=== PATIENT | female | born 1955 | race Caucasian/White ===

== ENCOUNTER 2017-05-09 14:25 | Emergency (ER) | payer SELFPAY ==
[~2017-05-09] VITALS: Ht 157.5 cm; Wt 55.8 kg
[2017-05-09 14:42] VITALS: Ht 157.5 cm; Wt 55.8 kg
[2017-05-09] MEDS ORDERED: DIPHTH/TET/ACEL PERTUSS (ADULT) 0.5 ML VIAL IM ONE (17:30)
[2017-05-09] MEDS ORDERED: LIDOCAINE 1% (MDV) 20 ML INJ SC ONE (18:00)
--- NOTE | 2017-05-09 18:37 | ERD ---
ER Documentation Chief Complaint Chief Complaint RIGHT PINKY FINGER LAC, NOT ACTIVELY BLEEDING, COVERED WITH GAUZE HPI 62-year-old female presents with a chief complaint of laceration. Laceration sustained 3 hours ago on a knife. Laceration is on the fifth digit. Vaccination status unknown. No recent travel or recent antibiotic use. Denies numbness, tingling, loss of range of motion. Pain is 7 out of 10. Refuses pain medications at this time. Patient has no other complaints and describes no other associated manifestations. Nursing notes have been reviewed and are consistent with history given. ROS All systems reviewed and are negative except as per history of present illness. PMhx/Soc History of Surgery: No Anesthesia Reaction: No Hx Neurological Disorder: No Hx Respiratory Disorders: No Hx Cardiac Disorders: No Hx Psychiatric Problems: No Hx Miscellaneous Medical Probl: No Hx Alcohol Use: No Hx Substance Use: No Hx Tobacco Use: No Smoking Status: Never smoker Physical Exam Vitals Vital Signs Date Time Temp Pulse Resp B/P Pulse Ox O2 Delivery O2 Flow Rate FiO2 05/09/17 14:42 98.0 78 18 150/86 99 Physical Exam Const: [] Head: Atraumatic Eyes: Normal Conjunctiva ENT: Normal External Ears, Nose and Mouth. Neck: Full range of motion..~ No meningismus. Resp: Clear to auscultation bilaterally Cardio: Regular rate and rhythm, no murmurs Skin: No petechiae or rashes Back: No midline or flank tenderness Ext: No cyanosis, or edema. L shaped 3 cm laceration on the lateral right fifth digit. Neurovascularly intact. Cap refill less than 2 seconds. Tendons intact. Full range of motion after anesthesia. Neur: Awake and alert Psych: Normal Mood and Affect Results 24 hrs Current Medications Medications (Trade) Dose Ordered Sig/Suha Route PRN Reason Start Time Stop Time Status Last Admin Dose Admin Diphtheria/ Tetanus/Acell Pertussis (Adacel) 0.5 ml ONCE ONCE IM 05/09/17 17:30 05/09/17 17:31 DC 05/09/17 17:25 Lidocaine (Xylocaine 1% (Mdv) 20 ml) 20 ml ONCE ONCE SC 05/09/17 18:00 05/09/17 18:01 DC Procedures/MDM Patient presents with a laceration sustained with kitchen knife 3 hours ago. Neurovascularly intact and tendons intact. 3 mL of lidocaine without epi was used to anesthetize the area with adequate anesthesia. I have no suspicion for neurovascular compromise, bony pathology. Most likely diagnosis is uncompensated laceration. No indication for antibiotics at this time. Tdap was given in the emergency department. Neurovascularly intact after the procedure. 2 4-0 nylon sutures were used without complication. An additional 3 3-0 Prolene sutures were used. Adequate approximation. I have instructed to follow-up in 2 days for wound check with approximated time of removal in 10-14 days. I have spoke with the patient regarding their condition and future management. They have verbally responded that they understand their status and treatment plan. The patients vitals are stable, and their current condition is appropriate for discharge. The patient will be given discharge instructions with return precautions. Departure Diagnosis: Primary Impression: Laceration Condition: Stable Patient Instructions: Laceration, Hand Additional Instructions: Fuiste visto en el Departamento de emergencias por tu laceracin que hamlin sido cerrada. Barbosa herida hamlin sido limpiada y cubierta con ungento antibitico. Por favor, mantenga prakash vendaje merrill 12 horas. Despus de 12 horas, tome el ap sito y limpie suavemente la herida con slo jabn y agua. Si se le administraron antibiticos, complete el curso del tratamiento diogenes se prescribe. Busque signos de infeccin, diogenes aumento de enrojecimiento, hinchazn , dolor o secrecin de pus (lquido amarillo/dexter). Si usted ve signos de infeccin, por favor regrese al Departamento de emergencias inmediatamente. Si no hay signos de infeccin, cubra barbosa herida con ungento antibitico y reaplique un apsito. Vas a formar ernesto cicatriz. Para evitar cicatrices demasiado oscuras, mantenga la herida cubierta y fuera ashia merrill los pr ximos 6-12 meses. Considere usar cremas anti-Scar de OTC tales diogenes mederma. Vuelva al Ed para un cheque de la herida en 2 gr y otra vez para el retiro de la sutura en 10-14 gr. GONZALEZ RDZ PA-C May 09, 2017 18:37
== END 2017-05-09 18:59 | disposition home or self-care (01) ==
LOC: FTE 14:25
DX: S61.217A Laceration without foreign body of left little finger without damage to nail, initial encounter (principal); W26.0XXA Contact with knife, initial encounter; Y92.9 Unspecified place or not applicable; Z23 Encounter for immunization
CPT/HCPCS: 90471; 90715

== ENCOUNTER 2017-05-12 11:20 | Emergency (ER) | payer SELFPAY ==
[~2017-05-12] VITALS: Ht 154.9 cm; Wt 55.6 kg
[2017-05-12 11:22] VITALS: Ht 154.9 cm; Wt 55.6 kg
--- NOTE | 2017-05-12 14:12 | RADRPT ---
PROCEDURE: XR finger CLINICAL INDICATION: Right finger pain TECHNIQUE: 3 views of the right fifth digit were obtained. COMPARISON: No prior studies are available for comparison. FINDINGS: There is an acute transverse mildly displaced and angulated fracture through the mid portion of the fifth middle phalanx with a 2 mm of palmar cortical offset and apex palmar angulation. There is no i ntra-articular involvement. There is soft tissue swelling of the fifth digit. IMPRESSION: 1. Acute displaced and angulated extraarticular fifth middle phalanx fracture as above. RPTAT: UU .Mario Zayas MD, Date Time Electronically viewed and signed by .Mario Zayas MD, on 05/12/2017 14:11 .K/
[2017-05-12] MEDS ORDERED: CEPH-443 PO (14:43)
[2017-05-12] MEDS ORDERED: SULF1TAB31 PO (14:43)
[2017-05-12] MEDS ORDERED: IBUP-1542 PO (14:43)
[2017-05-12] MEDS ORDERED: TRIMETHOPRIM/SULFAMETHOX (DS) TAB PO ONE (15:00)
[2017-05-12] MEDS ORDERED: CEPHALEXIN 500 MG CAP PO ONE (15:00)
[2017-05-12 15:46] VITALS: BP 128/63; PULSE 70; RESP 16; TEMP 98.5
--- NOTE | 2017-05-12 16:14 | ERD ---
ER Documentation Chief Complaint Chief Complaint RT 5TH FINGER WOUND CHECK, NO COMPLAINT HPI 62-year-old female comes in for wound check from a laceration that occurred about 3 days ago from a crush injury at work, she works at a decreased. The patient is right-hand dominant, she sustained a laceration at the lateral dorsal aspect of the right fifth digit, sutures are placed. She has no complaints except she does report some pain and swelling to the area. Her tetanus is up-to-date, sutures are placed and she comes in for wound check. This time she denies any drainage, fevers or chills. She has no difficulty with movement, denies numbness. ROS All systems reviewed and are negative except as per history of present illness. Medications Home Meds Active Scripts Ibuprofen* (Motrin*) 600 Mg Tab, 600 MG PO Q6, #30 TAB Prov:RAJWINDER GOODE PA-C 05/12/17 Sulfamethoxazole/Trimethoprim* (Bactrim Ds* Tablet) 1 Each Tablet, 1 TAB PO BID , #20 TAB Prov:RAJWINDER GOODE PA-C 05/12/17 Cephalexin* (Keflex*) 500 Mg Capsule, 500 MG PO QID for 10 Days, CAP Prov:RAJWINDER GOODE PA-C 05/12/17 Allergies Allergies: Coded Allergies: No Known Allergy (Unverified , 05/12/17) PMhx/Soc Medical and Surgical Hx: pt denies Medical Hx, pt denies Surgical Hx History of Surgery: No Anesthesia Reaction: No Hx Neurological Disorder: No Hx Respiratory Disorders: No Hx Cardiac Disorders: No Hx Psychiatric Problems: No Hx Miscellaneous Medical Probl: No Hx Alcohol Use: No Hx Substance Use: No Hx Tobacco Use: No Smoking Status: Never smoker Physical Exam Vitals Vital Signs Date Time Temp Pulse Resp B/P Pulse Ox O2 Delivery O2 Flow Rate FiO2 05/12/17 15:46 98.5 70 16 128/63 96 Room Air 05/12/17 11:22 98.5 90 16 127/63 96 Physical Exam General: Well-developed, well-nourished. The patient appears in no acute distress. HEENT: Head is normocephalic, atraumatic. No scleral icterus. Neck: Supple. Nontender. Lungs: Clear to auscultation. Normal air movement. Heart: Regular rate and rhythm. S1 and S2 are normal. No murmurs, gallops, or rubs. Abdomen: Nondistended. Extremities: Lateral aspect of the middle phalanx of the right fifth digit show 5 simple interrupted sutures intact, no dehiscence, erythema or drainage, there is ecchymosis and soft tissue swelling. She is able to flex and extend at the DIP, PIP and MCP joint, capillary refill less than 2 seconds and sensation is distally intact. Neurologic: Alert and oriented 3. No focal deficits. Normal speech and gait. Skin: Normal turgor. No rash or lesions. Results 24 hrs Current Medications Medications (Trade) Dose Ordered Sig/Suha Route PRN Reason Start Time Stop Time Status Last Admin Dose Admin Cephalexin (Keflex) 500 mg ONCE ONCE PO 05/12/17 15:00 05/12/17 15:01 DC 05/12/17 15:12 Trimethoprim/ Sulfamethoxazole (Bactrim (Ds)) 1 tab ONCE ONCE PO 05/12/17 15:00 05/12/17 15:01 DC 05/12/17 15:12 DIAGNOSTIC IMAGING REPORT Patient: HELGA PRESCOTT : 1955 Age: 62 Sex: F MR #: [id number] DOS: 05/12/17 1339 Ordering MD: RAJWINDER GOODE PA-C Location: [facility] Room/Bed: PROCEDURE: XR finger CLINICAL INDICATION: Right finger pain TECHNIQUE: 3 views of the right fifth digit were obtained. COMPARISON: No prior studies are available for comparison. FINDINGS: There is an acute transverse mildly displaced and angulated fracture through the mid portion of the fifth middle phalanx with a 2 mm of palmar cortical offset and apex palmar angulation. There is no intra-articular involvement. There is soft tissue swelling of the fifth digit. IMPRESSION: 1. Acute displaced and angulated extraarticular fifth middle phalanx fracture as above. RPTAT: UU .Mario Zayas MD, MD Date Time Electronically viewed and signed by .Mario Zayas MD, on 05/12/2017 14: 11 .K/ Procedures/MDM ED course: Patient's EMR was reviewed, the patient's tetanus was updated at the previous visit. The right fifth digit was covered with a clean dressing, immobilized, with a metal finger splint. Splint Assessment: Neurovascularly intact post splint placement with good fit. Medical decision makin-year-old female comes in with a wound check from a laceration that she sustained 3 years ago from a crush injury. Patient does not show any signs of infection, and x-rays obtained today show a acute fracture of the middle phalanx. Given the laceration patient was diagnosed with an open fracture of the middle phalanx of the right fifth digit. Patient will be covered with Keflex and Bactrim, and she is placed in a sling. I advised patient she is to follow-up with a hand specialist, the patient will be information to the hand clinic as well as [facility]. There are no signs of tenosynovitis, tendon injury, fracture with infection, abscess. Departure Diagnosis: Primary Impression: Fracture of finger, left, open Additional Impression: Encounter for wound re-check Condition: Good Patient Instructions: Wound Check, Lac F/U (No Infection), Fracture, Finger, Open (Child) Referrals: TEX CORNELL MD [facility] Additional Instructions: HAND Specialist:Usted tiene ernesto condicin mdica que requiere que jorden a un especialista dentro de los prximos 1-2 gr.POR FAVOR,CON VÁSQUEZ SEGUIMIENTO DE PRIMARIA PHSICIAN refferal. SI USTED NO TIENE UN MDICO GENERAL Y / O USTED NO PUEDE PAGAR izabel a un mdico,los siguientes reynaga RECURSOS sido suministrado a usted. ES VÁSQUEZ RESPONSABILIDAD PARA SER VISTOS POR EL ESPECIALISTA: RAJWINDER GOODE PA-C May 12, 2017 16:14
== END 2017-05-12 15:50 | disposition home or self-care (01) ==
LOC: FTE 11:20
DX: S62.626A Displaced fracture of middle phalanx of right little finger, initial encounter for closed fracture (principal); X58.XXXA Exposure to other specified factors, initial encounter; Y92.9 Unspecified place or not applicable
CPT/HCPCS: 73140

== ENCOUNTER 2017-05-24 12:39 | Emergency (ER) | payer BC ==
[~2017-05-24] VITALS: Wt 55.0 kg
[~2017-05-24 12:39] MED LIST: CEPH-443 PO; IBUP-1542 PO; SULF1TAB31 PO
--- NOTE | 2017-05-24 14:00 | RADRPT ---
PROCEDURE: XR Finger. CLINICAL INDICATION: Trauma. Right fifth finger pain. TECHNIQUE: Three views. Frontal, lateral, and oblique. COMPARISON: None available FINDINGS: There is an acute transverse fracture through the proximal to mid shaft of the fifth middle phalanx with angulation apex anterior measuring 20 degrees. There is no other fracture and there is no dislo cation. The soft tissues are normal. Articular surfaces are intact. There is no lytic or blastic lesion. There is no radiopaque foreign body. IMPRESSION: 1. Acute transverse fracture through the proximal to mid shaft of the fifth middle phalanx with ang ulation apex-anterior measuring 20 degrees. 2. Otherwise unremarkable images of the right fifth finger. RPTAT: QQ .Jeremy Good MD, MD Date Time Electronically viewed and signed by .Jeremy Good MD, on 05/24/2017 14:00 .R/
--- NOTE | 2017-05-24 15:27 | ERD ---
ER Documentation Chief Complaint Chief Complaint HERE FOR SUTURE REMOVAL FOR RIGHT PINKY FINGER. NO BLEEDING NOTED HPI 62-year-old female presenting for suture removal of the right pinky finger. Patient was seen here 15 days ago and had sutures placed. Patient has been attempting to follow-up with hand surgeon but has been unsuccessful. Patient is right-hand dominant. She works in a bakery. Denies fever ROS All systems reviewed and are negative except as per history of present illness. Medications Home Meds Active Scripts Ibuprofen* (Motrin*) 600 Mg Tab, 600 MG PO Q6, #30 TAB Prov:RAJWINDER GOODE PA-C 05/12/17 Sulfamethoxazole/Trimethoprim* (Bactrim Ds* Tablet) 1 Each Tablet, 1 TAB PO BID , #20 TAB Prov:RAJWINDER GOODE PA-C 05/12/17 Cephalexin* (Keflex*) 500 Mg Capsule, 500 MG PO QID for 10 Days, CAP Prov:RAJWINDER GOODE PA-C 05/12/17 Allergies Allergies: Coded Allergies: No Known Allergy (Unverified , 05/12/17) PMhx/Soc History of Surgery: No Anesthesia Reaction: No Hx Neurological Disorder: No Hx Respiratory Disorders: No Hx Cardiac Disorders: No Hx Psychiatric Problems: No Hx Miscellaneous Medical Probl: No Hx Alcohol Use: No Hx Substance Use: No Hx Tobacco Use: No Smoking Status: Never smoker Physical Exam Vitals Vital Signs Date Time Temp Pulse Resp B/P Pulse Ox O2 Delivery O2 Flow Rate FiO2 05/24/17 12:52 97.2 79 20 128/74 98 Physical Exam GENERAL: The patient is well-appearing, well-nourished, in no acute distress CHEST: Clear to auscultation bilaterally. There are no rales, wheezes or rhonchi. HEART: Regular rate and rhythm. No murmurs, clicks, rubs or gallops. No S3 or S4. EXTREMITIES: Decreased range of motion at the DIP and PIP joint likely secondary to splinting. Neurovascularly intact. Mild deformity of the PIP joint NEUROLOGIC: Alert and oriented. Cranial nerves II through XII intact. Motor strength in all 4 extremities with 5 out of 5 strength. Sensation grossly intact. Normal speech and gait. SKIN: Sutures intact to the dorsal right pinky. No dehiscence of the wound. No surrounding erythema. No purulence. Procedures/MDM DIAGNOSTIC IMAGING REPORT Patient: HELGA PRESCOTT : 1955 Age: 62 Sex: F MR #: [id number] DOS: 05/24/17 1330 Ordering MD: KONSTANTIN HALEY PA-C Location: [facility] Room/Bed: PROCEDURE: XR Finger. CLINICAL INDICATION: Trauma. Right fifth finger pain. TECHNIQUE: Three views. Frontal, lateral, and oblique. COMPARISON: None available FINDINGS: There is an acute transverse fracture through the proximal to mid shaft of the fifth middle phalanx with angulation apex anterior measuring 20 degrees. There is no other fracture and there is no dislocation. The soft tissues are normal. Articular surfaces are intact. There is no lytic or blastic lesion. There is no radiopaque foreign body. IMPRESSION: 1. Acute transverse fracture through the proximal to mid shaft of the fifth middle phalanx with angulation apex-anterior measuring 20 degrees. 2. Otherwise unremarkable images of the right fifth finger. ER Course: Simple interrupted sutures removed. No complication. Finger splint reapplied in the position of function. Neurovascularly intact pre-and post splint application per MDM: 62-year-old female pending for suture removals. There is no signs of dehiscence of the wound and no infection. Patient is recommended to follow-up with hand surgeon as she may need surgical intervention. At today's visit patient has decreased DIP and PIP range of motion. His range of motion was intact at the previous 2 visits and is likely decreased secondary to splinting for 2 weeks. She is recommended to follow-up with hand surgeon as soon as possible. Patient is told symptoms change or worsen to return immediately to the ER. All questions answered at discharge. Departure Diagnosis: Primary Impression: Encounter for removal of sutures Condition: Stable Patient Instructions: Suture Removal, No Complication Referrals: [facility] Additional Instructions: FOLLOW UP WITH YOUR PRIMARY CARE PHYSICIAN TOMORROW.Return to this facility if you are not improving as expected. KAMI HALEY PA-C May 24, 2017 15:27
== END 2017-05-24 14:55 | disposition home or self-care (01) ==
LOC: FTE 12:39
DX: S62.617D Displaced fracture of proximal phalanx of left little finger, subsequent encounter for fracture with routine healing (principal); X58.XXXD Exposure to other specified factors, subsequent encounter
CPT/HCPCS: 73140